=== PATIENT | female | born 1955 | race Caucasian/White ===

== ENCOUNTER 2016-12-26 20:02 | Inpatient (IN) | payer MEDICARE, OTHER ==
[~2016-12-26] VITALS: Ht 170.2 cm; Wt 97.9 kg
[~2016-12-26 20:02] MED LIST: ACYC800T PO; AMLO2.5T GT; CYCL100C21 PO; CYCL25CA11 GT; DIVA500T35 PO; DSS100 PO; FOLI1TAB15 PO; GABA-531 PO; LABE100 GT; LURA80 PO; MEGE400O4 GT; METO10L GT; MULT9LIQ6 GT; NYST30CR9; PANT40TA25 PO; PRED5 PO; QUET50TA PO; RIVA1PAT TD; TEMA7.5C17 PO; TRAM50TA4 PO; TRIH2TAB3 PO
[2016-12-26] MEDS ORDERED: TRAZ-147 PO (20:26)
[2016-12-26] MEDS ORDERED: MIRT30 PO (20:26)
[2016-12-26] MEDS ORDERED: LURA40 PO (20:26)
[2016-12-26] MEDS ORDERED: DIVA250T25 PO ×2 (20:26)
[2016-12-26 21:16] LABS: BASOPHILS # (AUTO) 0.04 K/uL (0.00-0.20); BASOPHILS % (AUTO) 0.5 % (0.0-2.0); EOSINOPHILS # (AUTO) 0.15 K/uL (0.00-0.70); EOSINOPHILS % (AUTO) 1.72 % (1.0-6.0); HEMATOCRIT 41.9 % (36-46); HEMOGLOBIN 13.9 g/dL (12.0-16.0); LYMPHOCYTES # (AUTO) 4.2 K/uL (1.0-4.8); LYMPHOCYTES % (AUTO) 46.2 % (22.0-44.0); MEAN CORPUSCULAR HEMOGLOBIN 35.2 pg (26.0-34.0); MEAN CORPUSCULAR HGB CONC 33.3 G/dL (31.0-37.0); MEAN CORPUSCULAR VOLUME 106 fL (80-100); MONOCYTES # (AUTO) 0.8 K/uL (0.1-1.0); MONOCYTES % (AUTO) 9.1 % (2.0-9.0); NEUTROPHILS # (AUTO) 3.8 K/uL (1.8-7.7); NEUTROPHILS % (AUTO) 42.5 % (40.0-70.0); PLATELET COUNT (AUTO) 157 K/uL (150-450); RED BLOOD CELL COUNT(AUTO) 3.96 MIL/uL (4.00-5.20); RED CELL DISTRIBUTION WIDTH 16.6 % (11.5-14.5)
[2016-12-26 21:25] LABS: CALCIUM, TOTAL 9.1 mg/dL (8.8-10.5); CREATININE 2.19 mg/dL (0.60-1.30); POTASSIUM 4.5 mmol/L (3.5-5.1)
[2016-12-26 21:31] LABS: ALBUMIN 2.6 g/dL (3.4-5.0); BILIRUBIN,TOTAL 0.4 mg/dL (0.1-1.0); TOTAL PROTEIN, SERUM 7.1 g/dL (6.4-8.2)
[2016-12-26 21:34] LABS: LACTIC ACID 1.5 mmol/L (0.4-2.0)
[2016-12-26 21:37] LABS: RBC MORPHOLOGY COMMENT ABNORMAL RBC MORPH
[2016-12-26] MEDS ORDERED: ACETAMINOPHEN 325 MG TABLET PO PRN (22:00)
[2016-12-26] MEDS ORDERED: ONDANSETRON HCL 4 MG/2 ML VIAL IVP PRN (22:00)
[2016-12-26 22:06] LABS: PROCALCITONIN (PCT) 0.07 ng/mL (<0.50)
[2016-12-26 22:09] VITALS: BP 129/73
[2016-12-27] MEDS ORDERED: PIPERACILLIN/TAZO 3.375 GM/D5W 50 ML IV ONE
[2016-12-27] MEDS ORDERED: HYDROCODONE/ACETAMINOPHEN 5-325 MG TABLET PO PRN (00:30)
[2016-12-27] MEDS ORDERED: ACETAMINOPHEN 325 MG TABLET PO PRN (00:30)
[2016-12-27] MEDS ORDERED: 0.9% SODIUM CHLORIDE 10 ML SYRINGE IVP PRN (00:30)
[2016-12-27] MEDS ORDERED: ZOLPIDEM TARTRATE 5 MG TABLET PO PRN (00:30)
[2016-12-27] MEDS ORDERED: SODIUM CHLORIDE 0.9% 250 ML IV ONE (00:42)
[2016-12-27] MEDS: PIPERACILLIN/TAZO 3.375 GM/D5W 50 ML IV SCH ×4 (01:00→18:02)
[2016-12-27 05:17] VITALS: BP 119/72
[2016-12-27 06:18] LABS: HEMATOCRIT 37.5 % (36-46); HEMOGLOBIN 12.8 g/dL (12.0-16.0); MEAN CORPUSCULAR HEMOGLOBIN 35.5 pg (26.0-34.0); MEAN CORPUSCULAR HGB CONC 34.2 G/dL (31.0-37.0); MEAN CORPUSCULAR VOLUME 104 fL (80-100); PLATELET COUNT (AUTO) 157 K/uL (150-450); RED BLOOD CELL COUNT(AUTO) 3.61 MIL/uL (4.00-5.20); RED CELL DISTRIBUTION WIDTH 16.6 % (11.5-14.5); WHITE BLOOD COUNT (AUTO) 8.9 K/uL (4.5-11.0)
[2016-12-27 06:32] LABS: ALBUMIN 2.2 g/dL (3.4-5.0); BILIRUBIN,TOTAL 0.4 mg/dL (0.1-1.0); CALCIUM, TOTAL 8.7 mg/dL (8.8-10.5); CREATININE 2.11 mg/dL (0.60-1.30); POTASSIUM 3.9 mmol/L (3.5-5.1); TOTAL PROTEIN, SERUM 6.2 g/dL (6.4-8.2)
[2016-12-27 07:36] VITALS: BP 127/66
[2016-12-27 07:38] LABS: EOSINOPHILS % (MANUAL) 5 % (1-6); LYMPHOCYTES % (MANUAL) 39 % (22-44); REACTIVE LYMPHOCYTES 20 % (0-0); TOTAL CELLS COUNTED 100
[2016-12-27] MEDS: PANTOPRAZOLE SODIUM 40 MG DR TABLET PO SCH (08:00)
[2016-12-27] MEDS: ENOXAPARIN SODIUM 40 MG/0.4 ML PF SYRINGE SQ SCH (08:00)
[2016-12-27] MEDS: DOCUSATE SODIUM 100 MG CAPSULE PO SCH ×2 (08:00→19:54)
[2016-12-27] MEDS ORDERED: SODIUM CHLORIDE 0.9% 1,000 ML IV ONE (08:30)
[2016-12-27] MEDS: PredniSONE 5 MG TABLET PO SCH (09:48)
[2016-12-27] MEDS: CycloSPORINE,MODIFIED 100 MG CAPSULE PO SCH ×2 (09:48→19:54)
[2016-12-27] MEDS ORDERED: AMLO-511 PO (12:11)
[2016-12-27] MEDS ORDERED: MAGNESIUM CITRATE 300 ML ORAL SOLUTION PO ONE (12:15)
[2016-12-27 15:30] VITALS: BP 118/67
[2016-12-27 19:50] VITALS: BP 97/51
[2016-12-28] VITALS (7 sets, daily range): BP systolic 114–141; BP diastolic 54–78
[2016-12-28] MEDS: PIPERACILLIN/TAZO 3.375 GM/D5W 50 ML IV SCH ×4 (00:05→18:00)
[2016-12-28 06:38] LABS: BASOPHILS % (AUTO) 0.2 % (0.0-2.0); EOSINOPHILS % (AUTO) 3.4 % (1.0-6.0); HEMOGLOBIN 12.9 g/dL (12.0-16.0); LYMPHOCYTES # (AUTO) 4.4 K/uL (1.0-4.8); LYMPHOCYTES % (AUTO) 50.5 % (22.0-44.0); MEAN CORPUSCULAR HEMOGLOBIN 35.9 pg (26.0-34.0); MEAN CORPUSCULAR HGB CONC 34.8 G/dL (31.0-37.0); MEAN CORPUSCULAR VOLUME 103 fL (80-100); MONOCYTES # (AUTO) 1.2 K/uL (0.1-1.0); MONOCYTES % (AUTO) 13.6 % (2.0-9.0); NEUTROPHILS # (AUTO) 2.8 K/uL (1.8-7.7); NEUTROPHILS % (AUTO) 32.3 % (40.0-70.0); PLATELET COUNT (AUTO) 149 K/uL (150-450); RED BLOOD CELL COUNT(AUTO) 3.58 MIL/uL (4.00-5.20); RED CELL DISTRIBUTION WIDTH 16.5 % (11.5-14.5); WHITE BLOOD COUNT (AUTO) 8.8 K/uL (4.5-11.0)
[2016-12-28 06:59] LABS: RBC MORPHOLOGY COMMENT ABNORMAL RBC MORPH
[2016-12-28 07:03] LABS: ALBUMIN 2.2 g/dL (3.4-5.0); BILIRUBIN,TOTAL 0.4 mg/dL (0.1-1.0); CALCIUM, TOTAL 8.6 mg/dL (8.8-10.5); CREATININE 2.07 mg/dL (0.60-1.30); POTASSIUM 3.9 mmol/L (3.5-5.1); TOTAL PROTEIN, SERUM 6.2 g/dL (6.4-8.2)
[2016-12-28] MEDS: PANTOPRAZOLE SODIUM 40 MG DR TABLET PO SCH (08:13)
[2016-12-28] MEDS: ENOXAPARIN SODIUM 40 MG/0.4 ML PF SYRINGE SQ SCH (08:13)
[2016-12-28] MEDS: PredniSONE 5 MG TABLET PO SCH (08:13)
[2016-12-28] MEDS: DOCUSATE SODIUM 100 MG CAPSULE PO SCH ×2 (08:13→20:14)
[2016-12-28] MEDS: CycloSPORINE,MODIFIED 100 MG CAPSULE PO SCH ×2 (08:14→20:14)
[2016-12-28 15:23] LABS: APPEARANCE,URINE CLOUDY (CLEAR); GLUCOSE, URINE (UA) NEGATIVE (NEGATIVE); KETONES,URINE NEGATIVE (NEGATIVE); OCCULT BLOOD,URINE SMALL (NEGATIVE); PH,URINE 6.5 (5.0-8.0); PROTEIN,URINE NEGATIVE (NEGATIVE)
[2016-12-28 15:27] LABS: ADD UA MICROSCOPIC YES; LEUKOCYTE ESTERASE ,URINE MODERATE (NEGATIVE); SQUAMOUS EPITHELIAL CELL,UR Moderate /LPF (None Seen); WBC,URINE 26-50 /HPF (0-5)
[2016-12-28 15:28] LABS: AMORPHOUS SEDIMENT,UR Few /LPF (None Seen)
[2016-12-29] MEDS: PIPERACILLIN/TAZO 3.375 GM/D5W 50 ML IV SCH ×4 (00:30→18:41)
[2016-12-29 03:33] VITALS: BP 139/69
[2016-12-29 07:14] VITALS: BP 150/77
[2016-12-29 08:44] LABS: CHOL/HDL RATIO 4.6 (3.9-5.7); THYROID STIMULATING HORMONE 3.68 uIU/mL (0.36-3.74)
[2016-12-29] MEDS: DOCUSATE SODIUM 100 MG CAPSULE PO SCH ×2 (08:45→21:02)
[2016-12-29] MEDS: PredniSONE 5 MG TABLET PO SCH (08:46)
[2016-12-29] MEDS: ENOXAPARIN SODIUM 40 MG/0.4 ML PF SYRINGE SQ SCH (08:46)
[2016-12-29] MEDS: CycloSPORINE,MODIFIED 100 MG CAPSULE PO SCH ×2 (08:46→21:02)
[2016-12-29] MEDS: PANTOPRAZOLE SODIUM 40 MG DR TABLET PO SCH (08:46)
[2016-12-29 11:20] VITALS: BP 135/78
[2016-12-29] MEDS: HYDROCORTISONE 0.5% 30 GM CREAM TP SCH ×2 (13:00→21:03)
[2016-12-29 15:25] VITALS: BP 115/68
[2016-12-29 19:28] VITALS: BP 123/70
[2016-12-29 23:15] VITALS: BP 130/95
[2016-12-30] MEDS: PIPERACILLIN/TAZO 3.375 GM/D5W 50 ML IV SCH ×4 (00:01→17:21)
[2016-12-30 04:38] VITALS: BP 118/81
[2016-12-30 07:34] VITALS: BP 127/69
[2016-12-30 07:44] LABS: CALCIUM, TOTAL 8.8 mg/dL (8.8-10.5); CREATININE 2.17 mg/dL (0.60-1.30); POTASSIUM 4.1 mmol/L (3.5-5.1)
[2016-12-30] MEDS: PredniSONE 5 MG TABLET PO SCH (08:21)
[2016-12-30] MEDS: PANTOPRAZOLE SODIUM 40 MG DR TABLET PO SCH (08:21)
[2016-12-30] MEDS: DOCUSATE SODIUM 100 MG CAPSULE PO SCH ×2 (08:21→20:23)
[2016-12-30] MEDS: CycloSPORINE,MODIFIED 100 MG CAPSULE PO SCH (08:21)
[2016-12-30] MEDS: ENOXAPARIN SODIUM 40 MG/0.4 ML PF SYRINGE SQ SCH (08:22)
[2016-12-30] MEDS: HYDROCORTISONE 0.5% 30 GM CREAM TP SCH ×2 (10:26→20:22)
[2016-12-30 11:20] VITALS: BP 125/76
[2016-12-30] MEDS: ACYCLOVIR 800 MG TABLET PO SCH (12:34)
[2016-12-30 14:52] LABS: APPEARANCE,URINE CLEAR (CLEAR); GLUCOSE, URINE (UA) NEGATIVE (NEGATIVE); KETONES,URINE NEGATIVE (NEGATIVE); LEUKOCYTE ESTERASE ,URINE NEGATIVE (NEGATIVE); OCCULT BLOOD,URINE NEGATIVE (NEGATIVE); PH,URINE 5.5 (5.0-8.0); PROTEIN,URINE NEGATIVE (NEGATIVE)
[2016-12-30 16:00] LABS: RBC,URINE 0-2 /HPF (0-2); SQUAMOUS EPITHELIAL CELL,UR Few /LPF (None Seen); WBC,URINE 0-2 /HPF (0-5)
[2016-12-30 16:27] VITALS: BP 126/79
[2016-12-30 20:06] VITALS: BP 137/70
[2016-12-30] MEDS: CYCLOSPORINE MODIFIED 25 MG PO SCH (20:23)
[2016-12-31] VITALS (7 sets, daily range): BP systolic 108–129; BP diastolic 64–75
[2016-12-31] MEDS: PIPERACILLIN/TAZO 3.375 GM/D5W 50 ML IV SCH ×5 (00:51→23:01)
[2016-12-31 06:21] LABS: CALCIUM, TOTAL 8.5 mg/dL (8.8-10.5); CREATININE 2.07 mg/dL (0.60-1.30); POTASSIUM 3.4 mmol/L (3.5-5.1)
[2016-12-31] MEDS: ENOXAPARIN SODIUM 40 MG/0.4 ML PF SYRINGE SQ SCH (09:10)
[2016-12-31] MEDS: PANTOPRAZOLE SODIUM 40 MG DR TABLET PO SCH (09:10)
[2016-12-31] MEDS: PredniSONE 5 MG TABLET PO SCH (09:11)
[2016-12-31] MEDS: ACYCLOVIR 800 MG TABLET PO SCH (09:11)
[2016-12-31] MEDS: DOCUSATE SODIUM 100 MG CAPSULE PO SCH ×2 (09:11→22:19)
[2016-12-31] MEDS: CYCLOSPORINE MODIFIED 25 MG PO SCH ×2 (13:32→22:19)
[2016-12-31] MEDS: HYDROCORTISONE 0.5% 30 GM CREAM TP SCH ×2 (13:38→22:21)
[2017-01-01 05:14] VITALS: BP 142/77
[2017-01-01] MEDS: PIPERACILLIN/TAZO 3.375 GM/D5W 50 ML IV SCH ×2 (05:52→12:05)
[2017-01-01 07:55] VITALS: BP 123/65
[2017-01-01] MEDS: ACYCLOVIR 800 MG TABLET PO SCH (08:49)
[2017-01-01] MEDS: PredniSONE 5 MG TABLET PO SCH (08:49)
[2017-01-01] MEDS: CYCLOSPORINE MODIFIED 25 MG PO SCH (08:49)
[2017-01-01] MEDS: PANTOPRAZOLE SODIUM 40 MG DR TABLET PO SCH (08:49)
[2017-01-01] MEDS: ENOXAPARIN SODIUM 40 MG/0.4 ML PF SYRINGE SQ SCH (08:49)
[2017-01-01] MEDS: DOCUSATE SODIUM 100 MG CAPSULE PO SCH (08:50)
[2017-01-01] MEDS: HYDROCORTISONE 0.5% 30 GM CREAM TP SCH (08:50)
[2017-01-01 12:19] VITALS: BP 128/74
[2017-01-01 15:28] VITALS: BP 128/64
[2017-01-01] MEDS ORDERED: SODIUM CHLORIDE 0.9% 250 ML IV ONE (17:14)
[2017-01-01] MEDS ORDERED: PIPERACILLIN SODIUM/TAZOBACTAM 2.25 GM in DEXTROSE 5%-WATER 50 ML IV SCH (18:00)
== END 2017-01-01 18:00 | DRG 603 ==
LOC: EMS 20:06 → 6N 20:54
PROVIDERS: ADMIT Internal Medicine; ATTEND Internal Medicine
DX: L03.312 Cellulitis of back [any part except buttock and flank] (principal); Z94.0 Kidney transplant status; N39.0 Urinary tract infection, site not specified; E44.0 Moderate protein-calorie malnutrition; I12.0 Hypertensive chronic kidney disease with stage 5 chronic kidney disease or end stage renal disease; F20.0 Paranoid schizophrenia; E78.5 Hyperlipidemia, unspecified; J44.9 Chronic obstructive pulmonary disease, unspecified; K21.9 Gastro-esophageal reflux disease without esophagitis; M19.90 Unspecified osteoarthritis, unspecified site; E66.01 Morbid (severe) obesity due to excess calories; F41.9 Anxiety disorder, unspecified; F32.9 Major depressive disorder, single episode, unspecified; B96.4 Proteus (mirabilis) (morganii) as the cause of diseases classified elsewhere; Z16.24 Resistance to multiple antibiotics; Z79.52 Long term (current) use of systemic steroids; Z88.8 Allergy status to other drugs, medicaments and biological substances; Z82.49 Family history of ischemic heart disease and other diseases of the circulatory system; Z83.3 Family history of diabetes mellitus; Z87.891 Personal history of nicotine dependence; T56.891S Toxic effect of other metals, accidental (unintentional), sequela
CPT/HCPCS: 76776; 80158; 82306; 82570; 83605; 84145; 84156; 84300; 84443; 87040; 87081; 87086; 89050; 93005; 99285; J1650; J2543; J7030; J7050; J7060; J7502; J7515

== ENCOUNTER 2025-02-03 11:39 | Emergency (ER) | payer MEDICARE, MEDICAID ==
[~2025-02-03] VITALS: Ht 157.5 cm; Wt 50.9 kg
[~2025-02-03 11:39] MED LIST changes: +ACYC-138 PO; -ACYC800T PO; +AMLO-257 PO; -AMLO2.5T GT; -CYCL100C21 PO; -CYCL25CA11 GT; +DIVA-111 PO; -DIVA500T35 PO; -GABA-531 PO; -LABE100 GT; +LURA40TA2 PO; -LURA80 PO; -MEGE400O4 GT; +MEGE400O44 GT; -METO10L GT; +MIRT-149 PO; -NYST30CR9; -PANT40TA25 PO; +PRED-549 PO; -PRED5 PO; -QUET50TA PO; -RIVA1PAT TD; -TEMA7.5C17 PO; -TRAM50TA4 PO; +TRAZ-257 PO; -TRIH2TAB3 PO; +[UNRECOGNIZED DRUG - CODE] PO
[2025-02-03 11:58] VITALS: TEMP 98.3
[2025-02-03 11:58] LABS: COVID AG,FIA SOURCE NASAL SWAB
[2025-02-03] MEDS ORDERED: VALP250S27 PO (12:12)
[2025-02-03] MEDS ORDERED: OLAN15TA98 PO (12:12)
[2025-02-03] MEDS ORDERED: DOCU-385 PO (12:12)
[2025-02-03] MEDS ORDERED: MIRT-92 PO (12:12)
[2025-02-03] MEDS: LORazepam 2 MG/ML VIAL IM ONE (12:17)
[2025-02-03 12:21] LABS: SARS-COV2 (COVID) ANTIGEN,FIA Negative (Negative)
[2025-02-03 12:57] LABS: PLATELET COUNT (AUTO) 165 K/uL (150-450); RED BLOOD CELL COUNT(AUTO) 3.24 MIL/uL (4.00-5.20); RED CELL DISTRIBUTION WIDTH 14.4 % (11.5-14.5); WHITE BLOOD COUNT (AUTO) 7.4 K/uL (4.5-11.0)
[2025-02-03 13:11] LABS: CALCIUM, TOTAL 7.7 mg/dL (8.8-10.5); CREATININE 2.49 mg/dL (0.60-1.30); GLOMERULAR FILTR. RATE CALC 19.0 mL/min (>60); GLUCOSE,RANDOM 108.0 mg/dL (70-110); SODIUM SERUM 141.0 mmol/L (136-145); UREA NITROGEN, BLOOD 40.0 mg/dL (7-18)
[2025-02-03 14:01] LABS: APPEARANCE,URINE HAZY (CLEAR); GLUCOSE, URINE (UA) NEGATIVE (NEGATIVE); LEUKOCYTE ESTERASE ,URINE NEGATIVE (NEGATIVE); NITRATE,URINE NEGATIVE (NEGATIVE); OCCULT BLOOD,URINE MODERATE (NEGATIVE); PH,URINE DRUG SCREEN 7.5 (5.0-8.0); SPECIFIC GRAVITIY, URINE 1.012 (1.003-1.030)
[2025-02-03 14:08] LABS: SQUAMOUS EPITHELIAL CELL,UR Few /LPF (None Seen)
[2025-02-03 14:09] LABS: ALCOHOL, URINE DRUG SCREEN NEGATIVE (NEGATIVE); AMPHET/METH SCREEN,URINE NEGATIVE (NEGATIVE); BARBITURATE SCREEN, URINE NEGATIVE (NEGATIVE); CANNABINOID SCREEN,URINE NEGATIVE (NEGATIVE); COCAINE SCREEN,URINE NEGATIVE (NEGATIVE); METHADONE SCREEN, URINE POSITIVE (NEGATIVE)
[2025-02-03 14:48] LABS: APPEARANCE,URINE HAZY (CLEAR); GLUCOSE, URINE (UA) NEGATIVE (NEGATIVE); LEUKOCYTE ESTERASE ,URINE SMALL (NEGATIVE); NITRATE,URINE NEGATIVE (NEGATIVE); OCCULT BLOOD,URINE SMALL (NEGATIVE); PH,URINE DRUG SCREEN 7.5 (5.0-8.0); SPECIFIC GRAVITIY, URINE 1.014 (1.003-1.030)
[2025-02-03 15:12] LABS: ALCOHOL, URINE DRUG SCREEN NEGATIVE (NEGATIVE); AMPHET/METH SCREEN,URINE NEGATIVE (NEGATIVE); BARBITURATE SCREEN, URINE NEGATIVE (NEGATIVE); CANNABINOID SCREEN,URINE NEGATIVE (NEGATIVE); COCAINE SCREEN,URINE NEGATIVE (NEGATIVE); METHADONE SCREEN, URINE NEGATIVE (NEGATIVE)
[2025-02-03] MEDS ORDERED: ZOLPIDEM TARTRATE 10 MG TABLET PO PRN (15:45)
[2025-02-03 19:11] VITALS: BP 131/89; PULSE 80; RESP 18; O2SAT 100
== END 2025-02-03 19:11 ==
LOC: EMS 11:39
DX: F20.9 Schizophrenia, unspecified (principal); D63.8 Anemia in other chronic diseases classified elsewhere; N28.9 Disorder of kidney and ureter, unspecified; F31.9 Bipolar disorder, unspecified; I10 Essential (primary) hypertension; Z79.899 Other long term (current) drug therapy; Z94.0 Kidney transplant status; Z88.8 Allergy status to other drugs, medicaments and biological substances; Z88.5 Allergy status to narcotic agent; Z20.822 Contact with and (suspected) exposure to COVID-19
CPT/HCPCS: 99283; 87426; 80048; 81001; 85025; 87086; 36415; 96372; 80307; G0480; J2060